=== PATIENT | male | born 1950 | race American Indian/Alaskan Native ===

== ENCOUNTER 2018-09-05 17:26 | Emergency (ER) | payer OTHER ==
[2018-09-05 18:28] VITALS: BP 149/81
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
== END 2018-09-05 20:42 | disposition home or self-care (01) ==
LOC: ED 17:26
DX: M54.2 Cervicalgia (principal); M54.9 Dorsalgia, unspecified; V89.2XXA Person injured in unspecified motor-vehicle accident, traffic, initial encounter; Y93.89 Activity, other specified; Y92.488 Other paved roadways as the place of occurrence of the external cause; Y99.8 Other external cause status
CPT/HCPCS: 71046; 72040; 72100; 93005; 93010; 99283